=== PATIENT | female | born 1990 | race Caucasian/White ===

== ENCOUNTER 2019-01-03 20:49 | Emergency (ER) | payer OTHER ==
[~2019-01-03 20:49] MED LIST: IBUP-1114 PO; MAPA500T2 PO; VITAPRTA PO
[2019-01-03] MEDS ORDERED: ADDE10TA PO (21:03)
[2019-01-03] MEDS ORDERED: LITH150C PO (21:03)
[2019-01-03 21:31] LABS: HEMATOCRIT 45.6 % (36.0-47.0); HEMOGLOBIN 15.5 g/dl (12.0-15.5); MEAN CORPUSCULAR HEMOGLOBIN 33.5 pg (27.0-33.0); MEAN CORPUSCULAR VOLUME 98.7 fl (80.0-96.0); PLATELET COUNT, AUTOMATED 223 10^3/uL (150-450); RED BLOOD COUNT 4.62 10^6/uL (4.00-5.40); WHITE BLOOD COUNT 7.1 10^3/uL (4.0-10.0)
[2019-01-03 21:48] LABS: HCG, SERUM QUALITATIVE NEGATIVE (NEGATIVE)
[2019-01-03 21:57] LABS: ACETAMINOPHEN LEVEL < 2.0 UG/ML (10.0-30.0); ALBUMIN 4.5 GM/DL (3.2-5.2); ALT/SGPT 22 U/L (12-78); BILIRUBIN,DIRECT 0.1 MG/DL (0.0-0.2); BILIRUBIN,TOTAL 0.5 MG/DL (0.2-1.0); BLOOD UREA NITROGEN 10 MG/DL (7-18); CARBON DIOXIDE LEVEL 26 MEQ/L (21-32); CHLORIDE LEVEL 106 MEQ/L (98-107); CREATININE FOR GFR 0.94 MG/DL (0.55-1.30); ETHYL ALCOHOL (ETHANOL) 0.054 % (0.000-0.010); GLOMERULAR FILTRATION RATE > 60.0 (>60); GLUCOSE, FASTING 85 MG/DL (70-100); LITHIUM LEVEL < 0.20 MEQ/L (0.60-1.20); SALICYLATE LEVEL 4.1 MG/DL (5.0-30.0); SODIUM LEVEL 140 MEQ/L (136-145); TOTAL PROTEIN 8.2 GM/DL (6.4-8.2)
[2019-01-03 22:10] LABS: AMPHETAMINES LEVEL URINE POSITIVE (NEGATIVE); BARBITURATES URINE NEGATIVE (NEGATIVE); BENZODIAZEPINES URINE NEGATIVE (NEGATIVE); CANNABINOIDS URINE POSITIVE (NEGATIVE); COCAINE METABOLITE URINE NEGATIVE (NEGATIVE); METHADONE URINE NEGATIVE (NEGATIVE); OPIATES URINE NEGATIVE (NEGATIVE); PHENCYCLIDINE URINE NEGATIVE (NEGATIVE)
[2019-01-04] MEDS ORDERED: POTASSIUM CHLORIDE 10 MEQ SR TABLET PO ONE
[2019-01-04 00:05] VITALS: BP 119/68
== END 2019-01-04 00:06 | disposition home or self-care (01) ==
LOC: M ED 20:49
DX: F32.9 Major depressive disorder, single episode, unspecified (principal); Z79.899 Other long term (current) drug therapy
CPT/HCPCS: 36415; 80048; 80076; 80178; 80307; 84443; 84703; 85027; 99284; G0480

== ENCOUNTER 2019-03-14 10:54 | Emergency (ER) | payer MEDICAID, OTHER ==
[~2019-03-14] VITALS: Ht 175.3 cm; Wt 56.6 kg
[~2019-03-14 10:54] MED LIST changes: +ADDE10TA PO; +LITH150C PO
[2019-03-14 14:03] VITALS: BP 122/61
== END 2019-03-14 14:04 | disposition home or self-care (01) ==
LOC: M ED 10:54
DX: F43.20 Adjustment disorder, unspecified (principal); F17.210 Nicotine dependence, cigarettes, uncomplicated

== ENCOUNTER → 2019-05-11 | Outpatient (REF) | payer OTHER ==
[2019-05-11 11:29] LABS: BASO # 0.1 10^3/uL (0.0-0.2); BASO % 1.2 % (0.0-1.0); EOS # 0.3 10^3/uL (0.0-0.5); EOS % 5.2 % (0.0-3.0); HEMATOCRIT 46.1 % (36.0-47.0); HEMOGLOBIN 15.7 g/dl (12.0-15.5); LYMPH # 2.3 10^3/uL (1.5-5.0); LYMPH % 45.9 % (24.0-44.0); MEAN CORPUSCULAR HEMOGLOBIN 34.1 pg (27.0-33.0); MEAN CORPUSCULAR HGB CONC 34.1 g/dl (32.0-36.5); MONO # 0.6 10^3/uL (0.0-0.8); MONO % 11.4 % (0.0-5.0); NEUTROPHILS # 1.8 10^3/uL (1.5-8.5); NEUTROPHILS % 36.1 % (36.0-66.0); PLATELET COUNT, AUTOMATED 215 10^3/uL (150-450); RED BLOOD COUNT 4.61 10^6/uL (4.00-5.40)
== END ==
LOC: M SFHCCLAY 08:25
PROVIDERS: ATTEND Family Medicine
DX: R63.4 Abnormal weight loss (principal); R59.1 Generalized enlarged lymph nodes; R19.7 Diarrhea, unspecified

== ENCOUNTER → 2019-05-25 | Outpatient (CLI) | payer OTHER ==
[~2019-05-25] MED LIST changes: +ISOVUE-370 76% 100ML VIAL (Q9967) As Ordered ONE
--- NOTE | 2019-05-25 10:23 | REP ---
SOFT-TISSUE NECK CT STUDY WITH IV CONTRAST: HISTORY: Localized enlarged lymph nodes. Bilateral cervical lymphadenopathy. Assess for neoplasm. No comparison imaging. The patient reports swollen lymph nodes in the right side of the neck. CT CONTRAST DOSE: 75 mL of intravenous Isovue 370. CT FINDINGS: Lung apices are clear. No bony destructive lesion is appreciated. The visualized paranasal sinuses are clear. No intraorbital abnormality is seen. Visualized intracranial structures and vascular structures are unremarkable. The thyroid lobes are normal in size homogeneous in texture and symmetric. Submandibular and parotid glands are normal and symmetric. Epiglottis and aryepiglottic folds are normal. No glottic or subglottic airway lesion is seen. Tonsillar and peritonsillar soft tissues are normal. The nasopharynx and retropharyngeal soft tissues are unremarkable. There is no CT evidence of adenopathy in the cervical lymph nodes on either side. No mass or fluid collection is seen. IMPRESSION: No neck mass or adenopathy seen. Electronically Signed by Abdullahi Rea MD 05/25/2019 12:12 P
== END ==
LOC: M RAD 09:15
PROVIDERS: ATTEND Otolaryngology
DX: R59.0 Localized enlarged lymph nodes (principal)
CPT/HCPCS: 70491; Q9967

== ENCOUNTER → 2019-06-03 | Outpatient (CLI) | payer OTHER ==
[~2019-06-03] MED LIST changes: -ISOVUE-370 76% 100ML VIAL (Q9967) As Ordered ONE
--- NOTE | 2019-06-03 10:06 | REP ---
REASON FOR EXAM: Weight loss. There are no prior for comparison. By report, an outside right upper quadrant ultrasound was normal. That examination was obtained on 02/17/2019. Multiple ultrasonographic images of the gallbladder show no definite diffuse gallbladder wall thickening or pericholecystic edema, however, there is at least one echogenic focus adherent to the gallbladder wall casting ring down artifact. Multiple ultrasonographic images of the liver show a hepatic parenchymal echo pattern to be within normal limits. There is no intrahepatic or extrahepatic ductal dilatation. The common bile duct measures 3 mm. Imaged portion of the pancreatic region shows a possible 1.3 x 0.4 x 1.2 cm sized nodule difficult to evaluate by ultrasound in this location but possibly representing a peripancreatic lymph node. In addition, the pancreatic head region does appear to be somewhat full sized. FINDINGS: Multiple ultrasonographic images of the right kidney show the right kidney to measure 12.6 x 5.2 x 4.2 cm. The renal cortical echotexture is unremarkable. There are no masses. There is good corticomedullary differentiation. There is no hydronephrosis. There are no perinephric fluid collections. Multiple ultrasonographic images of the left kidney show the left kidney to measure 12.5 x 4.2 x 4.4 cm. The renal cortical echotexture is unremarkable. There are no masses. There is good corticomedullary differentiation. There is no hydronephrosis. There are no perinephric fluid collections. The spleen measures 9. 4 x 9.2 x 3.5 cm with a volumetric index calculation of 303. This is within normal limits. There are no splenic or perisplenic abnormalities. The imaged portion of the abdominal aorta is within normal limits. There is no free fluid in the abdomen. IMPRESSION: 1. Findings involving the gallbladder as described above. This has the appearance of early adenomyomatosis. If the patient is experiencing chronic upper quadrant pain, consider followup with hepatobiliary imaging with gallbladder ejection fraction calculation. 2. Peripancreatic nodule as described above. The nodule appears prominent. Contrast enhanced CT examination of the pancreas is recommended. This is seen in conjunction with ultrasonographic evidence of pancreatic and fullness. 3. Other findings as described above. Electronically Signed by Chilango Reese DO 06/03/2019 10:33 A
== END ==
LOC: M RAD 07:32
PROVIDERS: ATTEND Internal Medicine Gastroenterology
DX: R63.4 Abnormal weight loss (principal)

== ENCOUNTER → 2019-06-09 | Outpatient (CLI) | payer OTHER ==
--- NOTE | 2019-06-09 12:46 | REP ---
BILATERAL MAMMOGRAM WITH 3D TOMOSYNTHESIS AND BILATERAL BREAST ULTRASOUND: Patient reports history of milky clear nipple discharge bilaterally. Two palpable lumps are reported in the outer left breast. These are marked on the skin with triangular markers. MLO and CC views of both breast performed with 3D tomosynthesis. Additional spot compression views in the region of the palpable lumps is performed on the left in multiple projections. There are no prior studies for comparison. Tyrer-Cuzick lifetime risk of breast cancer 11.0%. This is a baseline mammogram. There is mildly dense fibroglandular tissue bilaterally. No mass, architectural distortion or clustered microcalcifications are seen bilaterally. Real-time sonographic evaluation of bilateral retroareolar regions demonstrate no cystic or solid nodule. In the outer left breast, in the region of the palpable lumps, at 4 -o'clock position, there is a hypoechoic nodule, which is fairly superficial. This measures 7 x 6 x 3 mm. It is wider than tall. It is not hyperemic with duplex Doppler evaluation. IMPRESSION: BIRADS 4: BI-RADS/ACR category 4 mammogram. Suspicious Abnormality - biopsy should be considered. ACR 4 suspicious. Moderately dense breast parenchyma bilaterally limits the sensitivity of the mammogram. No mammographic abnormality is seen bilaterally. Ultrasound of the retroareolar regions is performed due to bilateral nipple discharge. No cystic or solid nodule is seen in the retroareolar regions. However, in the outer left breast at 4 -o'clock position, there is an oval hypoechoic nodule measuring 7 x 6 x 3 mm. This could represent a fibroadenoma. However, I would recommend ultrasound-guided biopsy. This mammogram was interpreted with the aid of an FDA-approved computer-aided detection system. A. Negative x-ray reports should not delay biopsy if a dominant or clinically suspicious mass is present. B. Four to eight percent of cancers are not identified by x-ray. C. Adenosis and dense breasts may obscure an underlying neoplasm. The patient states she/he had a clinical breast exam in May 2019. The patient letter being requested is M4.
== END ==
LOC: M WHC 09:56
PROVIDERS: ATTEND Family Medicine
DX: R63.4 Abnormal weight loss (principal); N63.20 Unspecified lump in the left breast, unspecified quadrant
CPT/HCPCS: 76642; 77066; G0279

== ENCOUNTER → 2019-06-10 | Outpatient (CLI) | payer OTHER ==
[~2019-06-10] MED LIST changes: +PROHANCE 279.3MG/ML 5ML VIAL As Ordered ONE
--- NOTE | 2019-06-10 13:31 | REP ---
MRI PANCREAS WITH AND WITHOUT CONTRAST: HISTORY: Chronic pancreatitis, weight loss, abdominal pain, nausea. COMPARISON: Ultrasound 06/03/2019, CT 06/29/2018. Pancreas is normal in signal with no evidence of pancreatitis. There is no pancreatic mass. There is no pancreatic duct dilatation. There is no biliary dilatation. In the visualized portions of the liver, there is a nonenhancing cyst seen in the right lobe measuring 9 mm in diameter. Otherwise, the visualized liver demonstrates no mass. Spleen is normal in size with no intrinsic abnormality. The adrenal glands are normal. Kidneys are normal. Normal-sized, nonenlarged lymph nodes are seen in the periaortic region. There appear to be a couple of subcentimeter lymph nodes in the peripancreatic region. One of these likely corresponds to the nodule on the ultrasound. No ascites is seen. Incidental note is made of a 3 cm cyst in the right ovary. IMPRESSION: No pancreatic mass or pancreatic duct dilatation. Nonenlarged peripancreatic and periaortic lymph nodes. One of the peripancreatic nonenlarged lymph nodes likely corresponds to the nodule seen on the recent ultrasound of 06/03/2019. Subcentimeter cyst in the right lobe of the liver. Incidental note is made of a 3 cm cyst in the right ovary. Electronically Signed by Wesley Guerrero MD 06/10/2019 03:07 P
== END ==
LOC: M RAD 08:37
PROVIDERS: ATTEND Internal Medicine Gastroenterology
DX: K86.1 Other chronic pancreatitis (principal); D48.7 Neoplasm of uncertain behavior of other specified sites
CPT/HCPCS: 74183; A9576

== ENCOUNTER → 2019-06-16 | Outpatient (CLI) | payer OTHER ==
[~2019-06-16] MED LIST changes: -PROHANCE 279.3MG/ML 5ML VIAL As Ordered ONE
== END ==
LOC: M PLALAB 10:21
PROVIDERS: ATTEND Surgery
DX: Z80.9 Family history of malignant neoplasm, unspecified (principal)

== ENCOUNTER → 2019-06-16 | Outpatient (REF) | payer OTHER ==
[2019-06-16 16:15] LABS: APPEARANCE, URINE HAZY (CLEAR); BACTERIA, URINE AUTO 1+ (NEGATIVE); BILIRUBIN, URINE AUTO NEGATIVE (NEGATIVE); BLOOD, URINE BLOOD NEGATIVE (NEGATIVE); COLOR, URINE YELLOW (YELLOW); GLUCOSE, URINE (UA) AUTO NEGATIVE (NEGATIVE); KETONE, URINE AUTO NEGATIVE (NEGATIVE); LEUKOCYTE ESTERASE, URINE AUTO NEGATIVE (NEGATIVE); NITRITE, URINE AUTO NEGATIVE (NEGATIVE); PROTEIN, URINE AUTO NEGATIVE (NEGATIVE); RBC, URINE AUTO 1 /HPF (0-3); SPECIFIC GRAVITY URINE AUTO 1.015 (1.002-1.035); SQUAMOUS EPITHELIAL CELL UR AU 5 /HPF (0-6); UROBILINOGEN, URINE AUTO 0.2 mg/dL (0.0-2.0); WBC, URINE AUTO 1 /HPF (0-3)
[2019-06-18 14:12] LABS: CARDIOLIPIN IGA ANTIBODY <9 APL U/mL (0-11); CARDIOLIPIN IGG ANTIBODY <9 GPL U/mL (0-14); CARDIOLIPIN IGM ANTIBODY 9 MPL U/mL (0-12)
[2019-06-21 10:31] LABS: DRVV SCREEN 36.3 SEC
[2019-06-21 10:32] LABS: PTT LUPUS TYPE ANTICOAG SCREEN 0.9 (0-1.2)
== END ==
LOC: M SFHCCLAY 11:57
PROVIDERS: ATTEND Family Medicine
DX: M25.50 Pain in unspecified joint (principal)

== ENCOUNTER → 2019-06-20 | Outpatient (CLI) | payer OTHER ==
--- NOTE | 2019-06-21 07:18 | REP ---
Clinical: Right axillary pain. Technique: Real time crews scale and color evaluation using linear high frequency transducer. Findings: Directed ultrasound examination of the right axillary region demonstrates multiple normal appearing lymph nodes measuring up to 11 x 17 x 6 mm and 16 x 11 x 5 mm. No fluid collection, abnormal appearing lymph nodes or mass lesion appreciated. Impression: Normal appearing right axillary lymph nodes.
== END ==
LOC: M WHC 11:09
PROVIDERS: ATTEND Surgery
DX: M79.621 Pain in right upper arm (principal)

== ENCOUNTER → 2019-06-23 | Outpatient (REF) | payer OTHER ==
[~2019-06-23] MED LIST changes: +AMIT25TA PO
[2019-06-23 17:34] LABS: BASO # 0.1 10^3/uL (0.0-0.2); EOS # 0.2 10^3/uL (0.0-0.5); EOS % 4.7 % (0.0-3.0); HEMATOCRIT 44.7 % (36.0-47.0); HEMOGLOBIN 15.5 g/dl (12.0-15.5); LYMPH # 2.2 10^3/uL (1.5-5.0); LYMPH % 44.5 % (24.0-44.0); MEAN CORPUSCULAR HEMOGLOBIN 34.5 pg (27.0-33.0); MEAN CORPUSCULAR HGB CONC 34.7 g/dl (32.0-36.5); MEAN CORPUSCULAR VOLUME 99.6 fl (80.0-96.0); MONO # 0.6 10^3/uL (0.0-0.8); MONO % 11.3 % (0.0-5.0); NEUTROPHILS # 1.8 10^3/uL (1.5-8.5); NEUTROPHILS % 37.9 % (36.0-66.0); PLATELET COUNT, AUTOMATED 230 10^3/uL (150-450); RED BLOOD COUNT 4.49 10^6/uL (4.00-5.40); WHITE BLOOD COUNT 4.9 10^3/uL (4.0-10.0)
[2019-06-25 08:10] LABS: ERYTHROPOIETIN 6.5 mIU/mL (2.6-18.5)
[2019-06-26 06:18] LABS: JAK2 MUTATIONS FOR PATH SENDOU See Pathology Report
== END ==
LOC: M LABDRAWC 16:01
PROVIDERS: ATTEND Internal Medicine Medical Oncology
DX: D72.821 Monocytosis (symptomatic) (principal)

== ENCOUNTER → 2019-06-27 | Outpatient (REF) | payer OTHER | LOC: M SFHCCLAY 08:42 | PROVIDERS: ATTEND Family Medicine | DX: Z11.4 Encounter for screening for human immunodeficiency virus [HIV] (principal) ==

== ENCOUNTER → 2019-07-04 | Outpatient (CLI) | payer OTHER | LOC: M LABSMTC 10:24 | PROVIDERS: ATTEND Anesthesiology | DX: Z01.818 Encounter for other preprocedural examination (principal); Z11.59 Encounter for screening for other viral diseases | CPT/HCPCS: C8903; U0003 ==

== ENCOUNTER → 2019-07-06 | Outpatient (REF) | payer OTHER ==
[2019-07-06 20:47] LABS: CHLAMYDIA DNA AMPLIFICATION NEGATIVE (NEGATIVE); GC DNA AMPLIFICATION NEGATIVE (NEGATIVE)
== END ==
LOC: M SFHCWAGY 17:28
PROVIDERS: ATTEND Obstetrics & Gynecology
DX: Z12.4 Encounter for screening for malignant neoplasm of cervix (principal)

== ENCOUNTER → 2019-07-20 | Outpatient (CLI) | payer OTHER ==
--- NOTE | 2019-07-20 15:12 | REP ---
REASON: Metrorrhagia. Only transvesical imaging was obtained. The urinary bladder was decompressed. No measurement could be obtained. Uterus measures 8.8 x 5.1 x 5.9 cm. The endometrial echo complex measures 8 mm. The right ovary measures 4 x 2.4 x 2.4 cm. Within the right ovary there are two anechoic structures, one measures 3.1 x 2.3 x 2.4 cm and the other 1.9 x 1.1 x 1.3 cm. Left ovary measures 1.8 x 2 x 1.9 cm. IMPRESSION: Right ovarian cysts.
== END ==
LOC: M WHC 08:15
PROVIDERS: ATTEND Obstetrics & Gynecology
DX: N83.202 Unspecified ovarian cyst, left side (principal)

== ENCOUNTER → 2019-08-16 | Outpatient (CLI) | payer OTHER ==
[~2019-08-16] MED LIST changes: +COLA100C5 PO; +IBUP1TAB7 PO; +TYLETAB14 PO
[2019-08-16 10:58] VITALS: BP 110/84
--- NOTE | 2019-08-16 10:59 | REP ---
DIGITAL DIAGNOSTIC UNILATERAL LEFT BREAST MAMMOGRAPHY: Two views. HISTORY: Marker clip placement mammogram views. The patient status post ultrasound-guided needle biopsy for hypoechoic area on sonography images dated June 09, 2019. FINDINGS: Mediolateral and craniocaudal views of the left breast were obtained. Marker clip is in good position in the left lateral breast corresponding to the area of the previous markings denoting the site of palpable abnormalities. No mammographic abnormality is observed other than some postoperative changes. There is no evidence of hematoma. IMPRESSION: Marker clip is seen in the lateral left breast.
--- NOTE | 2019-08-16 11:19 | REP ---
ULTRASOUND-GUIDED LEFT BREAST BIOPSY The procedure was performed under the general supervision of Dr. Rea. The patient has a history of a 7 x 6 x 3 mm hypoechoic nodule in the 4 o'clock position of the left breast seen on a previous ultrasound dated 06/09/2019. The risks and benefits of the procedure were explained to the patient and informed consent was obtained. The left breast nodule was localized using ultrasound guidance. The skin was prepped and draped in a sterile fashion. 1% lidocaine was used as a local anesthetic. Using ultrasound guidance a 14-gauge coaxial needle biopsy system was inserted and advanced into the nodule. Six core biopsy samples were obtained. A marker clip ( Hydromark shape 4) was placed at the biopsy site. The patient tolerated the procedure well and there were no immediate complications. Electronically Signed by RJ Fox 08/16/2019 10:23 A Electronically Signed by Abdullahi Rea MD 08/16/2019 11:11 A
== END ==
LOC: M WHCPRO 09:37
PROVIDERS: ATTEND Surgery
DX: N63.24 Unspecified lump in the left breast, lower inner quadrant (principal); N60.12 Diffuse cystic mastopathy of left breast

== ENCOUNTER → 2019-09-05 | Outpatient (REF) | payer OTHER ==
[2019-10-03 14:43] LABS: D002-IGE D FARINAE MITE 0.21 kU/L (Class 0/I); E001-IGE CAT EPITHELIUM/DANDER <0.10 kU/L (Class 0); E005-IGE DOG DANDER/HAIR/EPITH <0.10 kU/L (Class 0); G002-IGE BERMUDA GRASS <0.10 kU/L (Class 0); G003-IGE ORCHARD GRASS <0.10 kU/L (Class 0); G006-IGE TIMOTHY GRASS <0.10 kU/L (Class 0); IGE HICKORY, WHITE <0.10 kU/L (Class 0); M003-IGE ASPERGILLUS fumigatus <0.10 kU/L (Class 0); M003-IGE D pteronyssinus 0.24 kU/L (Class 0/I); M006-IGE ALTERNARIA alternata <0.10 kU/L (Class 0); M007-IGE BOTRYTIS cinerea <0.10 kU/L (Class 0); M009-IGE FUSARIUM proliferatum <0.10 kU/L (Class 0); T001-IGE MAPLE/BOX ELDER <0.10 kU/L (Class 0); T003-IGE COMMON SILVER BIRCH <0.10 kU/L (Class 0); T005-IGE BEECH (AMERICAN) <0.10 kU/L (Class 0); T007-IGE OAK, WHITE <0.10 kU/L (Class 0); T008-IGE ELM, AMERICAN WHITE <0.10 kU/L (Class 0); T014-IGE COTTONWOOD <0.10 kU/L (Class 0); T015-IGE ASH, WHITE <0.10 kU/L (Class 0); T016-IGE PINE, WHITE <0.10 kU/L (Class 0); W001-IGE RAGWEED, SHORT <0.10 kU/L (Class 0); W003-IGE RAGWEED, GIANT <0.10 kU/L (Class 0); W006-IGE MUGWORT <0.10 kU/L (Class 0); W009-IGE PLANTAIN,ENGLISH <0.10 kU/L (Class 0); W010-IGE LAMB'S QUARTER <0.10 kU/L (Class 0); W012-IGE GOLDENROD <0.10 kU/L (Class 0)
== END ==
LOC: M LABDRAWC 15:46
PROVIDERS: ATTEND Allergy & Immunology Allergy
DX: J30.9 Allergic rhinitis, unspecified (principal)

== ENCOUNTER → 2019-09-08 | Outpatient (CLI) | payer OTHER ==
[~2019-09-08] MED LIST changes: +PROHANCE 279.3MG/ML 5ML VIAL As Ordered ONE
--- NOTE | 2019-09-08 11:00 | REP ---
Bilateral breast MRI study without and with IV gadolinium: HISTORY: Bilateral nipple discharge. Left breast mass. The patient reports swelling in the lymph node on the left in the past week. Comparison mammography August 16, 2019 and sonography August 16, 2019 taken in conjunction with a needle biopsy procedure. Pathologic report from this needle biopsy procedure showed metaplasia/hyperplasia and focal ductal epithelial hyperplasia. Apocrine comparison is also made with mammography and breast sonography June 09, 2019. TECHNIQUE: Three Marquita MRI imaging was performed with a dedicated breast coil. Axial, coronal, and sagittal T1 and T2-weighted scans were obtained with and without fat saturation in the usual fashion. The study includes dynamically acquired post gadolinium enhanced imaging subtraction imaging. Maximal intensity projection and multiplanar re-formation imaging is included as well. The study was interpreted with the aid of [employer], an FDA approved computer-aided detection (CAD) software program, on a dedicated breast MRI work station. The gadolinium enhancement dose is 10 mL of intravenous ProHance. FINDINGS: T2-weighted scans demonstrate mild ductal dilation in the retroareolar region on the right and moderate dilated ducts on the left. There are two tiny incidental liver cysts. There is no evidence of axillary lymphadenopathy. There is a visible normal-sized axillary lymph node on the left measuring 8 x 5 mm. This is not enlarged or abnormal by ultrasound criteria. A needle biopsy marker clip with surrounding fluid signal (HydroMARK) type clip is seen in the biopsy site in the left lateral breast superficially. There is an extreme pattern of fibroglandular tissue bilaterally corresponding with the dense tissue seen mammographically. There is a moderate pattern of background parenchymal enhancement. No suspicious focus of enhancement and washout is seen in either breast on dynamic study to suggest malignancy. No suspicious morphologic abnormality is observed. IMPRESSION: BIRADS category 2 benign findings. Clinical followup is advised. Unreviewed
== END ==
LOC: M RAD 08:27
PROVIDERS: ATTEND Surgery
DX: N63.20 Unspecified lump in the left breast, unspecified quadrant (principal); N64.52 Nipple discharge
CPT/HCPCS: A9576; C8908

== ENCOUNTER 2019-10-06 09:21 | Day surgery (SDC) | payer OTHER ==
[~2019-10-06] VITALS: Ht 175.3 cm; Wt 52.2 kg
[~2019-10-06 09:21] MED LIST changes: -COLA100C5 PO; -IBUP1TAB7 PO; -PROHANCE 279.3MG/ML 5ML VIAL As Ordered ONE; -TYLETAB14 PO
[2019-10-06] MEDS ORDERED: propofoL 500 MG/50 ML VIAL As Ordered ONE (10:32)
[2019-10-06] MEDS ORDERED: LIDOCAINE 2% 100MG/5ML SDV (FOR ANES.) As Ordered ONE (10:32)
[2019-10-06] MEDS ORDERED: fentaNYL 100 MCG/2 ML INJECTION (J3010) As Ordered ONE (10:32)
[2019-10-06] MEDS ORDERED: NS 1,000 ML IV ONE (11:00)
[2019-10-06 11:20] VITALS: BP 110/70
--- NOTE | 2019-10-26 11:35 | ROOR ---
Patient Name: Quynh Schaffer Procedure Date: 10/06/2019 10:12 AM Date of : 1990 Age: 29 Room: [facility] Gender: Female Note Status: Molder Labels Override Procedure: Upper GI endoscopy Indications: Abnormal CT of the GI tract, Weight loss Providers: Amrik Myrick MD Referring MD: Rosalinda OLEARY DO Requesting Provider: Medicines: Monitored Anesthesia Care Complications: No immediate complications. Procedure: Pre-Anesthesia Assessment: - Prior to the procedure, a History and Physical was performed, and patient medications and allergies were reviewed. The patient is competent. The risks and benefits of the procedure and the sedation options and risks were discussed with the patient. All questions were answered and informed consent was obtained. Patient identification and proposed procedure were verified by the physician, the nurse and the anesthesiologist in the procedure room. Mental Status Examination: alert and oriented. Airway Examination: normal oropharyngeal airway and neck mobility. Respiratory Examination: clear to auscultation. CV Examination: normal. Prophylactic Antibiotics: The patient does not require prophylactic antibiotics. Prior Anticoagulants: The patient has taken no previous anticoagulant or antiplatelet agents. ASA Grade Assessment: II - A patient with mild systemic disease. After reviewing the risks and benefits, the patient was deemed in satisfactory condition to undergo the procedure. The anesthesia plan was to use monitored anesthesia care (MAC). Immediately prior to administration of medications, the patient was re-assessed for adequacy to receive sedatives. The heart rate, respiratory rate, oxygen saturations, blood pressure, adequacy of pulmonary ventilation, and response to care were monitored throughout the procedure. The physical status of the patient was re-assessed after the procedure. The Endoscope was introduced through the mouth, and advanced to the second part of duodenum. The upper GI endoscopy was accomplished without difficulty. The patient tolerated the procedure well. Findings: The examined esophagus was normal. The Z-line was regular and was found 40 cm from the incisors. Scattered mild inflammation characterized by erythema and granularity was found in the gastric antrum. Biopsies were taken with a cold forceps for Helicobacter pylori testing. Verification of patient identification for the specimen was done by the physician and nurse using the patient's name, date and medical record number. Estimated blood loss was minimal. The duodenal bulb, second portion of the duodenum and area of the papilla were normal. Biopsies for histology were taken with a cold forceps for evaluation of celiac disease. Impression: - Normal esophagus. - Z-line regular, 40 cm from the incisors. - Gastritis. Biopsied. - Normal duodenal bulb, second portion of the duodenum and area of the papilla. Biopsied. Recommendation: - Patient has a contact number available for emergencies. The signs and symptoms of potential delayed complications were discussed with the patient. Return to normal activities tomorrow. Written discharge instructions were provided to the patient. - Resume previous diet. - Continue present medications. - Await pathology results. - Return to GI clinic in [facility] (address [address], [address], [place], [facility] [place]) in 4 -- 6 weeks. Please call GI clinic @ [phone] for apppointment date and time. - Return to primary care physician. Amrik Myrick MD 10/06/2019 10:33:58 AM Number of Addenda: 0 Note Initiated On: 10/06/2019 10:12 AM Estimated Blood Loss: Estimated blood loss was minimal.
--- NOTE | 2019-10-26 11:35 | ROOR ---
Patient Name: Quynh Schaffer Procedure Date: 10/06/2019 10:13 AM Date of : 1990 Age: 29 Room: [facility] Gender: Female Note Status: Finalized Procedure: Colonoscopy Indications: Abnormal CT of the GI tract, Weight loss Providers: Amrik Myrick MD Referring MD: Rosalinda OLEARY DO Requesting Provider: Medicines: Monitored Anesthesia Care Complications: No immediate complications. Procedure: Pre-Anesthesia Assessment: - Prior to the procedure, a History and Physical was performed, and patient medications and allergies were reviewed. The patient is competent. The risks and benefits of the procedure and the sedation options and risks were discussed with the patient. All questions were answered and informed consent was obtained. Patient identification and proposed procedure were verified by the physician, the nurse and the anesthesiologist in the procedure room. Mental Status Examination: alert and oriented. Airway Examination: normal oropharyngeal airway and neck mobility. Respiratory Examination: clear to auscultation. CV Examination: normal. Prophylactic Antibiotics: The patient does not require prophylactic antibiotics. Prior Anticoagulants: The patient has taken no previous anticoagulant or antiplatelet agents. ASA Grade Assessment: II - A patient with mild systemic disease. After reviewing the risks and benefits, the patient was deemed in satisfactory condition to undergo the procedure. The anesthesia plan was to use monitored anesthesia care (MAC). Immediately prior to administration of medications, the patient was re-assessed for adequacy to receive sedatives. The heart rate, respiratory rate, oxygen saturations, blood pressure, adequacy of pulmonary ventilation, and response to care were monitored throughout the procedure. The physical status of the patient was re-assessed after the procedure. The Colonoscope was introduced through the anus and advanced to the terminal ileum, with identification of the appendiceal orifice and IC valve. The colonoscopy was performed without difficulty. The patient tolerated the procedure well. The quality of the bowel preparation was good. The terminal ileum, ileocecal valve, appendiceal orifice, and rectum were photographed. Scope insertion time was 3 minutes. Scope withdrawal time was 9 minutes. The total duration of the procedure was 12 minutes. Findings: The perianal and digital rectal examinations were normal. The terminal ileum appeared normal. Non-bleeding external and internal hemorrhoids were found during retroflexion. The hemorrhoids were medium-sized. Normal mucosa was found in the entire colon. Biopsies for histology were taken with a cold forceps from the right colon, left colon, transverse colon and rectosigmoid colon for evaluation of microscopic colitis. Impression: - The examined portion of the ileum was normal. - Non-bleeding external and internal hemorrhoids. - Normal mucosa in the entire examined colon. Biopsied. Recommendation: - Patient has a contact number available for emergencies. The signs and symptoms of potential delayed complications were discussed with the patient. Return to normal activities tomorrow. Written discharge instructions were provided to the patient. - Resume previous diet. - Continue present medications. - Await pathology results. - Repeat colonoscopy at age 49 for screening purposes. - Return to GI clinic in [facility] (address [address], [address], [place] [address]) in 4 -- 6 weeks. Please call GI clinic @ [phone] for apppointment date and time. - Return to primary care physician. Amrik Myrick MD 10/06/2019 10:55:39 AM Number of Addenda: 0 Note Initiated On: 10/06/2019 10:13 AM Estimated Blood Loss: Estimated blood loss was minimal.
== END 2019-10-06 11:29 | disposition home or self-care (01) ==
LOC: M OPP 09:21
PROVIDERS: ATTEND Internal Medicine Gastroenterology
DX: K64.8 Other hemorrhoids (principal); K29.70 Gastritis, unspecified, without bleeding; R63.4 Abnormal weight loss; R93.3 Abnormal findings on diagnostic imaging of other parts of digestive tract; K63.5 Polyp of colon; F17.210 Nicotine dependence, cigarettes, uncomplicated; Z79.899 Other long term (current) drug therapy; Z91.040 Latex allergy status
CPT/HCPCS: 43239; 45380; 88305; J3010

== ENCOUNTER → 2019-10-09 | Outpatient (CLI) | payer OTHER ==
[~2019-10-09] MED LIST changes: +COLA100C5 PO; +IBUP1TAB7 PO; +TYLETAB14 PO
== END ==
LOC: M LABSMTC 10:50
PROVIDERS: ATTEND Anesthesiology
DX: Z11.59 Encounter for screening for other viral diseases (principal)
CPT/HCPCS: C9803; U0003

== ENCOUNTER 2019-10-14 06:08 | Day surgery (SDC) | payer OTHER ==
[~2019-10-14] VITALS: Ht 175.3 cm; Wt 52.2 kg
[~2019-10-14 06:08] MED LIST changes: -COLA100C5 PO; -IBUP1TAB7 PO; -TYLETAB14 PO
[2019-10-14] MEDS ORDERED: ceFAZolin 2 GM/D5W 50 ML IV BAG (J0690 PER 500MG) As Ordered ONE (06:44)
[2019-10-14] MEDS ORDERED: LR 1,000 ML IV ONE (06:45)
[2019-10-14] MEDS ORDERED: ceFAZolin SOD 2 GM in IV 1 EA IV ONE (06:45)
[2019-10-14] MEDS ORDERED: BUPIVACAINE HCL 0.25% 30ML VIAL As Ordered ONE (07:11)
[2019-10-14] MEDS ORDERED: METHYLENE BLUE 0.5% (5MG/ML) 10 ML AMP (PROVAYBLUE) As Ordered ONE (07:12)
[2019-10-14 07:13] LABS: HEMATOCRIT 42.9 % (36.0-47.0); HEMOGLOBIN 14.8 g/dl (12.0-15.5); MEAN CORPUSCULAR HEMOGLOBIN 33.9 pg (27.0-33.0); MEAN CORPUSCULAR HGB CONC 34.5 g/dl (32.0-36.5); MEAN CORPUSCULAR VOLUME 98.4 fl (80.0-96.0); PLATELET COUNT, AUTOMATED 208 10^3/uL (150-450); RED BLOOD COUNT 4.36 10^6/uL (4.00-5.40); WHITE BLOOD COUNT 4.6 10^3/uL (4.0-10.0)
[2019-10-14] MEDS ORDERED: SCOPOLAMINE 1MG TRANSDERMAL PATCH As Ordered ONE (07:14)
[2019-10-14] MEDS ORDERED: fentaNYL 100 MCG/2 ML INJECTION (J3010) As Ordered ONE (07:19)
[2019-10-14] MEDS ORDERED: ROCURONIUM BROMIDE 50 MG/5 ML VIAL As Ordered ONE ×2 (07:19→09:10)
[2019-10-14] MEDS ORDERED: HYDROmorphone HCL 2 MG/ML 1ML VIAL (J1170) As Ordered ONE (07:19)
[2019-10-14] MEDS ORDERED: LIDOCAINE 2% 100MG/5ML SDV (FOR ANES.) As Ordered ONE (07:19)
[2019-10-14] MEDS ORDERED: ONDANSETRON 4MG/2ML VIAL As Ordered ONE (07:19)
[2019-10-14] MEDS ORDERED: SUGAMMADEX SODIUM 500 MG/5 ML VIAL (BRIDION) As Ordered ONE (07:19)
[2019-10-14] MEDS ORDERED: ACETAMINOPHEN 1000MG 100ML IV BTL (OFIRMEV) (J0131 PER 10MG) As Ordered ONE (07:19)
[2019-10-14] MEDS ORDERED: dexameTHASONE 4 MG/ML 1ML VIAL (J1100 PER 1MG) As Ordered ONE (07:19)
[2019-10-14] MEDS ORDERED: MIDAZOLAM INJ 2MG/2ML VIAL (J2250 PER 1MG) As Ordered ONE (07:19)
[2019-10-14] MEDS ORDERED: propofoL 200 MG/20 ML VIAL As Ordered ONE (07:19)
[2019-10-14] MEDS ORDERED: SCOPOLAMINE 1MG TRANSDERMAL PATCH TOP ONE (07:45)
[2019-10-14 08:01] LABS: HCG, SERUM QUALITATIVE NEGATIVE (NEGATIVE)
[2019-10-14] MEDS ORDERED: KETOROLAC 60MG 2ML VIAL As Ordered ONE (09:00)
[2019-10-14] MEDS ORDERED: IBUP1TAB7 PO (10:33)
[2019-10-14] MEDS ORDERED: TYLETAB14 PO (10:35)
[2019-10-14] MEDS ORDERED: COLA100C5 PO (10:36)
[2019-10-14] MEDS ORDERED: ONDANSETRON 4MG/2ML VIAL IV PRN ×2 (10:39→10:45)
[2019-10-14] MEDS ORDERED: diphenhydrAMINE 50MG/ML VIAL (J1200) IV PRN (10:45)
[2019-10-14] MEDS ORDERED: PROMETHAZINE INJ 25 MG/ML VIAL (J2550) IV PRN (10:45)
[2019-10-14] MEDS ORDERED: LR 1,000 ML IV SCH (10:45)
[2019-10-14] MEDS ORDERED: ACETAMINOPH W/CODEINE #3 TAB UD PO PRN (10:45)
[2019-10-14] MEDS ORDERED: fentaNYL 100 MCG/2 ML INJECTION (J3010) IV PRN (10:45)
[2019-10-14] MEDS ORDERED: MORPHINE 4 MG/ML 1ML VIAL/SYRINGE (J2270) IV PRN (10:45)
[2019-10-14] MEDS ORDERED: METOCLOPRAMIDE INJ 10MG/2ML VIAL (J2765 PER 1) IV PRN (10:45)
[2019-10-14] MEDS ORDERED: PERCOCET 5MG/325MG TAB PO PRN (10:45)
[2019-10-14] MEDS ORDERED: KETOROLAC 30 MG/ML 1ML VIAL IV PRN ×2 (10:45)
[2019-10-14 11:05] VITALS: BP 119/78
[2019-10-14 11:35] VITALS: BP 131/75
[2019-10-14 12:03] VITALS: BP 123/71
== END 2019-10-14 13:10 | disposition home or self-care (01) ==
LOC: M SDC 06:08 → M PED 10:59 → M SDC 13:10
PROVIDERS: ATTEND Obstetrics & Gynecology
DX: N93.9 Abnormal uterine and vaginal bleeding, unspecified (principal); R10.2 Pelvic and perineal pain; N80.0 Endometriosis of uterus; N88.8 Other specified noninflammatory disorders of cervix uteri; Z91.040 Latex allergy status; F32.9 Major depressive disorder, single episode, unspecified; F41.9 Anxiety disorder, unspecified; Z79.899 Other long term (current) drug therapy
CPT/HCPCS: 36415; 58571; 84703; 85027; 86850; 86900; 86901; 88307; J0131; J0690; J1100; J1170; J1885; J2250; J2405; J3010; Q9968

== ENCOUNTER → 2019-12-06 | Outpatient (REF) | payer OTHER ==
[~2019-12-06] MED LIST changes: +COLA100C5 PO; +IBUP1TAB7 PO; +TYLETAB14 PO
[2019-12-06 17:55] LABS: C REACTIVE PROTEIN QUANTITATIV < 0.30 MG/DL (0.00-0.30); CPK CREATINE PHOSPHOKINASE 62 U/L (26-192); FREE T4 0.92 NG/DL (0.76-1.46); TOTAL PROTEIN 7.8 GM/DL (6.4-8.2)
[2019-12-06 17:58] LABS: THYROID PEROXIDASE ANTIBODY 29.4 U/ML (<60.0); TOTAL T3 104.4 NG/DL (60.0-181.0)
[2019-12-06 18:09] LABS: HEPATITIS B SURFACE ANTIGEN NEGATIVE (NEGATIVE)
[2019-12-06 18:37] LABS: HEPATITIS C VIRUS ABY INDEX 0.1 INDEX (<0.8)
[2019-12-08 09:31] LABS: ALBUMIN 4.75 GM/DL (3.29-5.55); ALBUMIN % 60.9 % (55.8-66.1); ALPHA-1-GLOBULINS 0.31 GM/DL (0.17-0.41); ALPHA-2-GLOBULINS 0.62 GM/DL (0.42-0.99); BETA-1-GLOBULINS 0.46 GM/DL (0.28-0.60); BETA-1-GLOBULINS % 5.9 % (4.7-7.2); BETA-2-GLOBULINS 0.39 GM/DL (0.19-0.55); GAMMA GLOBULIN % 16.2 % (11.1-18.8); GAMMA GLOBULINS 1.26 GM/DL (0.65-1.58)
[2019-12-12 19:06] LABS: ANCA-ATYPICAL <1:20 titer (Neg:<1:20); ANTI CENTROMERE ANTIBODY <0.2 AI (0.0-0.9); ANTI SCLERODERMA ANTIBODIES <0.2 AI (0.0-0.9); CYCLIC CITRULLINATED PEPTIDE 5 units (0-19); CYTOPLASMIC NEUTROP AB ANCA-C <1:20 titer (Neg:<1:20); HEPATITIS B CORE ANTIBODY IGG Negative (Negative); HLA-B27 Negative (.); PERINUCLEAR AB ANCA-P <1:20 titer (Neg:<1:20)
== END ==
LOC: M SFHCRHEU 12:06
PROVIDERS: ATTEND Internal Medicine
DX: M25.50 Pain in unspecified joint (principal); R76.8 Other specified abnormal immunological findings in serum; R63.4 Abnormal weight loss

== ENCOUNTER → 2019-12-21 | Outpatient (CLI) | payer OTHER ==
--- NOTE | 2019-12-21 14:46 | REP ---
INDICATION: POLYATHRALGIA. COMPARISON: None. TECHNIQUE: Four views. FINDINGS: Sacroiliac joints show no evidence of ankylosis or erosive change. No degenerative spurring is seen. The bony sacrum appears intact. IMPRESSION: Negative bilateral SI joint series. <Electronically signed by Oliverio Rea > 12/21/19 [id number]
--- NOTE | 2019-12-23 13:21 | ECHO ---
DATE OF PROCEDURE: 12/21/2019 Age: 29 Gender: Female REFERRING PROVIDER: Mariya Lisa MD PATIENT LOCATION: Outpatient. REASON FOR STUDY: Hypermobility syndrome. 2D MEASUREMENTS: IVS 0.8 cm LV 4.3 cm LVPW 0.7 cm LA 2.4 cm Aorta 2.8 cm IVC 1.9 cm DOPPLER MEASUREMENT Mitral E 1.0 Mitral A 0.5 with a ratio of 2.1 2D COMMENTS: 1. Normal left ventricular size, wall thickness, and normal global left ventricular systolic function. The estimated left ventricular systolic ejection fraction is 60% to 65%. 2. Normal left atrium. Normal right atrium and right ventricle. 3. The atrial septum appeared to be normal without evidence of defect or shunt. 4. Normal aortic root. 5. No pericardial effusion seen. 6. The aortic valve, mitral valve, and tricuspid valve appeared to be normal. The pulmonic valve and proximal pulmonary artery branches were not well visualized. 7. The inferior vena cava was normal in size, central venous pressure is most likely normal. Doppler with no significant valvular abnormalities detected. Assessment of the left ventricular diastolic function appeared to be normal. IMPRESSION: 1. Normal global left ventricular systolic and diastolic function. 2. No significant valvular abnormalities detected. 3. The aorta was normal in size. [facility]
== END ==
LOC: M CARPUL 10:15
PROVIDERS: ATTEND Internal Medicine
DX: M35.7 Hypermobility syndrome (principal)

== ENCOUNTER → 2020-04-13 | Outpatient (REF) | payer MEDICAID ==
[~2020-04-13] MED LIST changes: -AMIT25TA PO; +AMIT25TA17 PO
== END ==
LOC: M SFHCCLAY 11:08
PROVIDERS: ATTEND Family Medicine
DX: K13.0 Diseases of lips (principal)

== ENCOUNTER → 2020-04-17 | Outpatient (REF) | payer MEDICAID | LOC: M SFHCCLAY 17:20 | PROVIDERS: ATTEND Family Medicine | DX: L98.9 Disorder of the skin and subcutaneous tissue, unspecified (principal) ==

== ENCOUNTER → 2020-06-11 | Outpatient (CLI) | payer OTHER ==
--- NOTE | 2020-06-11 09:53 | REPMRS ---
Patient History The patient states she had a clinical breast exam in July 2019. Family history of unknown cancer in father, unknown cancer in brother, breast cancer in paternal aunt, breast cancer in paternal aunt. Benign US guided breast biopsy. of the left breast, August 16, 2019. No breast complaints today Patient signed the MRS sheet 1st covid vaccine 04/19/20-left arm-Pfizer 2nd covid vaccine 05/10/20-right arm Patient states she has gained 25lbs since her last mammo U/S guided breast bx 08/16/2019 Digital Woman Screen Mammo: June 11, 2020 - Exam #: [id number] Bilateral CC and MLO view(s) were taken. Technologist: Aysha Hunter, Technologist Prior study comparison: August 16, 2019, left breast diagnostic unilateral mammo performed at [facility]. June 09, 2019, diagnostic bilateral mammo performed at [facility]. FINDINGS: The breast tissue is extremely dense which could obscure a lesion on mammography. Screening. Digital screening (2D) mammography was performed bilaterally in the CC and MLO projections. Additionally, breast tomosynthesis (3D mammography) was performed bilaterally in the CC and MLO projections. Todays exam was compared to the prior exams(s). By history, the patient has no complaints of a palpable breast abnormality or other significant breast complaints. The breasts are unchanged in size and shape. Once again, dense heterogenous fibroglandular elements are seen bilaterally in a stable appearing pattern but to such a degree that the sensitivity of the mammogram in detecting cancer is decreased.There are no willam-soft tissue densities or spiculated masses. There is no internal architectural distortion. There are no suspicious willam-calcific clusters. Skin thickening or nipple retraction is not present. IMPRESSION: BI-RADS Category 2- Benign Findings(s). There is no evidence of malignant alteration of the breasts. Followup examination recommended in one year. The Volpara volumetric breast density category is D, the breasts are extremely dense which lowers the sensitivity of mammography. This mammogram was read with the assistance of [employer],an FDA approved computer aided detection system for mammography. The lifetime Tyrer-Cuzick score is 16.1 % Negative x-ray reports should not delay surgical consultation if a dominant or clinically suspicious mass is present. Not all breast cancers can be identified by mammography. Therefore, we recommend that you continue to perform regular breast self-examination and physical examination and then promptly contact your physician of any concerns or changes. Adenosis and dense breasts may obscure an underlying neoplasm. Assessment: BI-RADS/ACR category 2 mammogram. Benign Findings. Recommendation Routine screening mammogram of both breasts in 1 year. Electronically Signed By: Chilango Reese DO 06/11/20 [id number]
== END ==
LOC: M WHC 08:18
PROVIDERS: ATTEND Surgery
DX: Z12.31 Encounter for screening mammogram for malignant neoplasm of breast (principal); Z80.8 Family history of malignant neoplasm of other organs or systems; Z86.018 Personal history of other benign neoplasm

== ENCOUNTER → 2020-08-13 | Outpatient (CLI) | payer OTHER ==
--- NOTE | 2020-08-13 13:51 | REPVR ---
PROCEDURE INFORMATION: Exam: MR Lumbar Spine Without Contrast Exam date and time: 08/13/2020 11:57 AM Age: 30 years old Clinical indication: Low back pain; Additional info: Lumbago with sciatica RT side TECHNIQUE: Imaging protocol: Multiplanar magnetic resonance images of the lumbar spine without intravenous contrast. COMPARISON: None available. FINDINGS: Vertebrae: There is no fracture or listhesis. Marrow signal is within normal limits. Spinal cord: Normal signal. No cord compression. L1-L2: No significant disc disease. No significant spinal canal stenosis. No neural foraminal stenosis. L2-L3: There is shallow disc bulging. No significant spinal canal stenosis. No neural foraminal stenosis. L3-L4: There is shallow disc bulging. There is mild facet hypertrophy. No significant spinal canal stenosis. No neural foraminal stenosis. L4-L5: There is shallow disc bulging with a right foraminal/extraforaminal annular tear. There is moderate facet hypertrophy. There is mild bilateral neural foraminal narrowing. L5-S1: No significant disc disease. No significant spinal canal stenosis. No neural foraminal stenosis. Soft tissues: Unremarkable. IMPRESSION: Degenerative disc disease and spondylosis. At L4/5, changes contribute to mild bilateral neural foraminal narrowing. Electronically signed by: Carine Cote On 08/13/2020 13:50:48 PM
== END ==
LOC: M PLAIMG 10:58
PROVIDERS: ATTEND Family Medicine
DX: M47.816 Spondylosis without myelopathy or radiculopathy, lumbar region (principal); M54.41 Lumbago with sciatica, right side

== ENCOUNTER → 2020-11-27 | Outpatient (REF) | payer OTHER ==
[2020-11-27 16:19] LABS: APPEARANCE, URINE CLOUDY (CLEAR); BACTERIA, URINE AUTO 1+ (NEGATIVE); BILIRUBIN, URINE AUTO NEGATIVE (NEGATIVE); BLOOD, URINE BLOOD NEGATIVE (NEGATIVE); COLOR, URINE YELLOW (YELLOW); GLUCOSE, URINE (UA) AUTO NEGATIVE (NEGATIVE); KETONE, URINE AUTO NEGATIVE (NEGATIVE); LEUKOCYTE ESTERASE, URINE AUTO NEGATIVE (NEGATIVE); MUCUS, URINE SMALL (NEGATIVE); NITRITE, URINE AUTO NEGATIVE (NEGATIVE); PROTEIN, URINE AUTO NEGATIVE (NEGATIVE); RBC, URINE AUTO 2 /HPF (0-3); SPECIFIC GRAVITY URINE AUTO 1.011 (1.002-1.035); SQUAMOUS EPITHELIAL CELL UR AU 4 /HPF (0-6); UROBILINOGEN, URINE AUTO 0.2 mg/dL (0.0-2.0); WBC, URINE AUTO 24 /HPF (0-3)
== END ==
LOC: M SFHCCLAY 09:58
PROVIDERS: ATTEND Family Medicine
DX: R31.9 Hematuria, unspecified (principal)

== ENCOUNTER → 2021-05-03 | Outpatient (CLI) | payer OTHER ==
[~2021-05-03] MED LIST changes: +PROHANCE 279.3MG/ML 15ML VIAL ONE
== END ==
LOC: M PLAIMG 08:04
PROVIDERS: ATTEND Nurse Practitioner Women's Health
DX: Z91.89 Other specified personal risk factors, not elsewhere classified (principal)
CPT/HCPCS: 77049; A9576

== ENCOUNTER → 2021-08-07 | Outpatient (REF) | payer MEDICAID, OTHER ==
[~2021-08-07] MED LIST changes: -PROHANCE 279.3MG/ML 15ML VIAL ONE
[2021-08-07 17:46] LABS: BASO # 0.1 10^3/uL (0.0-0.2); BASO % 0.7 % (0.0-1.0); EOS # 0.2 10^3/uL (0.0-0.5); EOS % 1.7 % (0.0-3.0); HEMATOCRIT 41.5 % (36.0-47.0); HEMOGLOBIN 15.1 g/dl (12.0-15.5); LYMPH # 1.9 10^3/uL (1.5-5.0); LYMPH % 14.3 % (24.0-44.0); MEAN CORPUSCULAR HEMOGLOBIN 33.8 pg (27.0-33.0); MEAN CORPUSCULAR HGB CONC 36.4 g/dl (32.0-36.5); MEAN CORPUSCULAR VOLUME 92.8 fl (80.0-96.0); MONO # 1.2 10^3/uL (0.0-0.8); NEUTROPHILS # 9.8 10^3/uL (1.5-8.5); NEUTROPHILS % 73.8 % (36.0-66.0); PLATELET COUNT, AUTOMATED 240 10^3/uL (150-450); RED BLOOD COUNT 4.47 10^6/uL (4.00-5.40); WHITE BLOOD COUNT 13.2 10^3/uL (4.0-10.0)
[2021-08-07 17:50] LABS: ALBUMIN 4.2 GM/DL (3.2-5.2); ALT/SGPT 16 U/L (12-78); BILIRUBIN,TOTAL 0.8 MG/DL (0.2-1.0); BLOOD UREA NITROGEN 13 MG/DL (7-18); CALCIUM LEVEL 9.5 MG/DL (8.5-10.1); CARBON DIOXIDE LEVEL 19 MEQ/L (21-32); CHLORIDE LEVEL 106 MEQ/L (98-107); CREATININE FOR GFR 0.93 MG/DL (0.55-1.30); GLOMERULAR FILTRATION RATE > 60.0 (>60); GLUCOSE, FASTING 76 MG/DL (70-100); POTASSIUM SERUM 3.6 MEQ/L (3.5-5.1); SODIUM LEVEL 138 MEQ/L (136-145); TOTAL PROTEIN 7.3 GM/DL (6.4-8.2)
[2021-08-07 17:55] LABS: VITAMIN B12 LEVEL 599 PG/ML (247-911)
== END ==
LOC: M SFHCCLAY 15:51
PROVIDERS: ATTEND Physician Assistant
DX: R06.02 Shortness of breath (principal)

== ENCOUNTER → 2021-08-23 | Outpatient (CLI) | payer OTHER | LOC: M WHC 07:59 | PROVIDERS: ATTEND Nurse Practitioner Women's Health | DX: Z12.31 Encounter for screening mammogram for malignant neoplasm of breast (principal); Z80.3 Family history of malignant neoplasm of breast ==

== ENCOUNTER → 2022-03-26 | Outpatient (CLI) | payer OTHER ==
[2022-03-26 11:00] LABS: BASO # 0.1 10^3/uL (0.0-0.2); BASO % 1.6 % (0.0-1.0); EOS # 0.5 10^3/uL (0.0-0.5); EOS % 8.6 % (0.0-3.0); HEMATOCRIT 44.9 % (36.0-47.0); HEMOGLOBIN 15.4 g/dl (12.0-15.5); LYMPH # 2.2 10^3/uL (1.5-5.0); LYMPH % 34.4 % (24.0-44.0); MEAN CORPUSCULAR HEMOGLOBIN 33.6 pg (27.0-33.0); MEAN CORPUSCULAR HGB CONC 34.3 g/dl (32.0-36.5); MEAN CORPUSCULAR VOLUME 97.8 fl (80.0-96.0); MONO # 0.8 10^3/uL (0.0-0.8); MONO % 12.1 % (2.0-8.0); NEUTROPHILS # 2.7 10^3/uL (1.5-8.5); NEUTROPHILS % 42.8 % (36.0-66.0); PLATELET COUNT, AUTOMATED 262 10^3/uL (150-450); RED BLOOD COUNT 4.59 10^6/uL (4.00-5.40); WHITE BLOOD COUNT 6.3 10^3/uL (4.0-10.0)
[2022-03-26 11:14] LABS: ERYTHROCYTE SEDIMENTATION RATE 3 mm/hr (0-20)
[2022-03-26 11:27] LABS: ALBUMIN 3.7 G/DL (3.2-5.2); ALKALINE PHOSPHATASE 77 U/L (46-116); ALT/SGPT 18 U/L (7.0-40); AST/SGOT 17 U/L (<34); BILIRUBIN,TOTAL 0.4 MG/DL (0.3-1.2); BLOOD UREA NITROGEN 12 MG/DL (9-23); CALCIUM LEVEL 9.3 MG/DL (8.5-10.1); CARBON DIOXIDE LEVEL 31 MMOL/L (20-31); CHLORIDE LEVEL 105 MMOL/L (98-107); CREATININE FOR GFR 0.77 MG/DL (0.55-1.30); GLOMERULAR FILTRATION RATE > 60.0 (>60); GLUCOSE, FASTING 87 MG/DL (60-100); PHOSPHORUS LEVEL 4.1 MG/DL (2.5-4.9); POTASSIUM SERUM 4.7 MMOL/L (3.5-5.1); SODIUM LEVEL 140 MMOL/L (136-145); TOTAL PROTEIN 6.8 G/DL (5.7-8.2)
[2022-03-26 11:28] LABS: THYROID STIMULATING HORMONE 1.621 uIU/ML (0.55-4.78)
[2022-03-27 16:09] LABS: ANTINUCLEAR ANTIBODIES DIRECT Negative (Negative)
== END ==
LOC: M PLALAB 08:47
PROVIDERS: ATTEND Psychiatry & Neurology Neurology
DX: R55 Syncope and collapse (principal)

== ENCOUNTER 2022-08-06 14:15 | Emergency (ER) | payer OTHER, SELFPAY ==
[~2022-08-06] VITALS: Ht 175.3 cm; Wt 69.5 kg
[2022-08-06 14:16] VITALS: TEMP 98.1
[2022-08-06] MEDS ORDERED: ZYRTTAB8 PO (14:29)
[2022-08-06] MEDS ORDERED: FAMO40TA3 (14:29)
[2022-08-06] MEDS ORDERED: PREG200C (14:29)
[2022-08-06] MEDS ORDERED: PRAZ1CAP (14:29)
[2022-08-06] MEDS ORDERED: AMPHETA/DEXTRO (14:29)
[2022-08-06] MEDS ORDERED: VRAY4.5C (14:29)
[2022-08-06 15:12] LABS: BASO % 0.9 % (0.0-1.0); EOS # 0.2 10^3/uL (0.0-0.5); EOS % 3.3 % (0.0-3.0); HEMATOCRIT 40.2 % (36.0-47.0); HEMOGLOBIN 13.4 g/dl (12.0-15.5); LYMPH # 1.5 10^3/uL (1.5-5.0); LYMPH % 33.8 % (24.0-44.0); MEAN CORPUSCULAR HEMOGLOBIN 32.4 pg (27.0-33.0); MEAN CORPUSCULAR HGB CONC 33.3 g/dl (32.0-36.5); MEAN CORPUSCULAR VOLUME 97.1 fl (80.0-96.0); MONO # 0.5 10^3/uL (0.0-0.8); MONO % 11.7 % (2.0-8.0); NEUTROPHILS # 2.3 10^3/uL (1.5-8.5); NEUTROPHILS % 50.1 % (36.0-66.0); PLATELET COUNT, AUTOMATED 182 10^3/uL (150-450); RED BLOOD COUNT 4.14 10^6/uL (4.00-5.40); WHITE BLOOD COUNT 4.5 10^3/uL (4.0-10.0)
[2022-08-06 15:40] LABS: LIPASE 43 U/L (12-53)
[2022-08-06 15:42] LABS: ALBUMIN 3.3 G/DL (3.2-5.2); ALKALINE PHOSPHATASE 158 U/L (46-116); ALT/SGPT 954 U/L (7.0-40); AST/SGOT 822 U/L (<34); BILIRUBIN,DIRECT 5.5 MG/DL (<0.4); BILIRUBIN,TOTAL 7.3 MG/DL (0.3-1.2); BLOOD UREA NITROGEN 6 MG/DL (9-23); CALCIUM LEVEL 8.7 MG/DL (8.5-10.1); CARBON DIOXIDE LEVEL 27 MMOL/L (20-31); CHLORIDE LEVEL 104 MMOL/L (98-107); CREATININE FOR GFR 0.81 MG/DL (0.55-1.30); GLOMERULAR FILTRATION RATE > 60.0 (>60); GLUCOSE, FASTING 105 MG/DL (60-100); POTASSIUM SERUM 3.5 MMOL/L (3.5-5.1); SODIUM LEVEL 139 MMOL/L (136-145); TOTAL PROTEIN 6.2 G/DL (5.7-8.2)
[2022-08-06 15:52] LABS: HCG, SERUM QUALITATIVE NEGATIVE (NEGATIVE)
[2022-08-06 19:21] VITALS: BP 116/77; O2SAT 100
[2022-08-06 19:22] LABS: INR 1.11; PROTHROMBIN TIME 14.5 SECONDS (12.5-14.5)
[2022-08-06 19:23] LABS: PARTIAL THROMBOPLASTIN TIME 35.4 SECONDS (24.8-34.2)
== END 2022-08-06 19:22 | disposition home or self-care (01) ==
LOC: M ED 14:15
DX: R74.01 Elevation of levels of liver transaminase levels (principal); R17 Unspecified jaundice; R51.9 Headache, unspecified; F31.9 Bipolar disorder, unspecified; F17.200 Nicotine dependence, unspecified, uncomplicated; Z91.040 Latex allergy status; Z79.899 Other long term (current) drug therapy

== ENCOUNTER → 2022-09-16 | Outpatient (CLI) | payer OTHER, MEDICAID ==
[~2022-09-16] MED LIST changes: -AMIT25TA17 PO; +AMIT25TA19 PO; +AMPHETA/DEXTRO; +FAMO40TA3; +PRAZ1CAP; +PREG200C; +VRAY4.5C; +ZYRTTAB8 PO
== END ==
LOC: M CLY 15:36
PROVIDERS: ATTEND Nurse Practitioner Family
DX: R06.02 Shortness of breath (principal)

== ENCOUNTER → 2022-09-16 | Outpatient (REF) | payer OTHER, MEDICAID ==
[~2022-09-16] MED LIST changes: +AMIT25TA17 PO; -AMIT25TA19 PO
[2022-09-16 18:31] LABS: ALBUMIN 4.2 G/DL (3.2-5.2); ALKALINE PHOSPHATASE 76 U/L (46-116); ALT/SGPT 163 U/L (7.0-40); AST/SGOT 82 U/L (<34); BILIRUBIN,TOTAL 1.6 MG/DL (0.3-1.2); BLOOD UREA NITROGEN 6 MG/DL (9-23); CALCIUM LEVEL 9.4 MG/DL (8.5-10.1); CARBON DIOXIDE LEVEL 26 MMOL/L (20-31); CHLORIDE LEVEL 105 MMOL/L (98-107); CREATININE FOR GFR 0.67 MG/DL (0.55-1.30); GLOMERULAR FILTRATION RATE > 60.0 (>60); GLUCOSE, FASTING 76 MG/DL (60-100); POTASSIUM SERUM 3.7 MMOL/L (3.5-5.1); SODIUM LEVEL 143 MMOL/L (136-145); TOTAL PROTEIN 7.2 G/DL (5.7-8.2)
== END ==
LOC: M SFHCCLAY 15:08
PROVIDERS: ATTEND Nurse Practitioner Family
DX: R17 Unspecified jaundice (principal); R74.8 Abnormal levels of other serum enzymes

== ENCOUNTER → 2022-10-21 | Outpatient (REF) | payer MEDICAID, OTHER ==
[~2022-10-21] MED LIST changes: -AMIT25TA17 PO; +AMIT25TA19 PO; -PREG200C; +PREG200C2
[2022-10-21 17:52] LABS: BASO # 0.1 10^3/uL (0.0-0.2); BASO % 1.3 % (0.0-1.0); EOS # 0.1 10^3/uL (0.0-0.5); EOS % 2.6 % (0.0-3.0); HEMOGLOBIN 14.9 g/dl (12.0-15.5); LYMPH # 2.3 10^3/uL (1.5-5.0); LYMPH % 42.6 % (24.0-44.0); MEAN CORPUSCULAR HEMOGLOBIN 32.7 pg (27.0-33.0); MEAN CORPUSCULAR HGB CONC 34.7 g/dl (32.0-36.5); MEAN CORPUSCULAR VOLUME 94.3 fl (80.0-96.0); MONO # 0.7 10^3/uL (0.0-0.8); MONO % 13.3 % (2.0-8.0); NEUTROPHILS # 2.2 10^3/uL (1.5-8.5); PLATELET COUNT, AUTOMATED 160 10^3/uL (150-450); RED BLOOD COUNT 4.56 10^6/uL (4.00-5.40); WHITE BLOOD COUNT 5.5 10^3/uL (4.0-10.0)
[2022-10-21 18:03] LABS: ALBUMIN 4.3 G/DL (3.2-5.2); ALKALINE PHOSPHATASE 58 U/L (46-116); ALT/SGPT 34 U/L (7.0-40); AST/SGOT 29 U/L (<34); BILIRUBIN,TOTAL 1.5 MG/DL (0.3-1.2); BLOOD UREA NITROGEN 8 MG/DL (9-23); CALCIUM LEVEL 9.1 MG/DL (8.5-10.1); CARBON DIOXIDE LEVEL 30 MMOL/L (20-31); CHLORIDE LEVEL 104 MMOL/L (98-107); GLOMERULAR FILTRATION RATE > 60.0 (>60); GLUCOSE, FASTING 86 MG/DL (60-100); POTASSIUM SERUM 3.5 MMOL/L (3.5-5.1); SODIUM LEVEL 141 MMOL/L (136-145); TOTAL PROTEIN 7.4 G/DL (5.7-8.2)
== END ==
LOC: M SFHCCLAY 10:01
PROVIDERS: ATTEND Nurse Practitioner Family
DX: R74.8 Abnormal levels of other serum enzymes (principal)

== ENCOUNTER → 2022-11-20 | Outpatient (CLI) | payer OTHER | LOC: M PLAIMG 10:05 | PROVIDERS: ATTEND Nurse Practitioner Family | DX: R74.8 Abnormal levels of other serum enzymes (principal); K76.0 Fatty (change of) liver, not elsewhere classified; K76.89 Other specified diseases of liver ==

== ENCOUNTER → 2022-12-29 | Outpatient (REF) | payer OTHER, MEDICAID | LOC: M SFHCCLAY 10:28 | PROVIDERS: ATTEND Nurse Practitioner Family | DX: Z53.9 Procedure and treatment not carried out, unspecified reason (principal) ==

== ENCOUNTER → 2022-12-30 | Outpatient (REF) | payer OTHER, MEDICAID ==
[2022-12-30 17:36] LABS: BASO # 0.1 10^3/uL (0.0-0.2); BASO % 1.1 % (0.0-1.0); EOS # 0.4 10^3/uL (0.0-0.5); EOS % 5.8 % (0.0-3.0); HEMOGLOBIN 14.3 g/dl (12.0-15.5); LYMPH # 2.3 10^3/uL (1.5-5.0); LYMPH % 37.5 % (24.0-44.0); MEAN CORPUSCULAR HEMOGLOBIN 32.9 pg (27.0-33.0); MEAN CORPUSCULAR VOLUME 96.6 fl (80.0-96.0); MONO # 0.6 10^3/uL (0.0-0.8); MONO % 10.1 % (2.0-8.0); NEUTROPHILS # 2.8 10^3/uL (1.5-8.5); NEUTROPHILS % 45.2 % (36.0-66.0); PLATELET COUNT, AUTOMATED 165 10^3/uL (150-450); RED BLOOD COUNT 4.35 10^6/uL (4.00-5.40); WHITE BLOOD COUNT 6.2 10^3/uL (4.0-10.0)
[2022-12-30 17:40] LABS: ALKALINE PHOSPHATASE 50 U/L (46-116); ALT/SGPT 18 U/L (7.0-40); AST/SGOT 20 U/L (<34); BILIRUBIN,TOTAL 0.7 MG/DL (0.3-1.2); BLOOD UREA NITROGEN 6 MG/DL (9-23); CALCIUM LEVEL 8.9 MG/DL (8.5-10.1); CARBON DIOXIDE LEVEL 30 MMOL/L (20-31); CHLORIDE LEVEL 107 MMOL/L (98-107); CREATININE FOR GFR 0.64 MG/DL (0.55-1.30); GLOMERULAR FILTRATION RATE > 60.0 (>60); GLUCOSE, FASTING 98 MG/DL (60-100); POTASSIUM SERUM 3.4 MMOL/L (3.5-5.1); SODIUM LEVEL 144 MMOL/L (136-145); TOTAL PROTEIN 6.9 G/DL (5.7-8.2)
== END ==
LOC: M SFHCCLAY 10:48
PROVIDERS: ATTEND Nurse Practitioner Family
DX: R74.8 Abnormal levels of other serum enzymes (principal); R31.9 Hematuria, unspecified; F90.9 Attention-deficit hyperactivity disorder, unspecified type

== ENCOUNTER 2023-08-21 18:42 | Inpatient (IN) | payer OTHER, SELFPAY ==
[~2023-08-21] VITALS: Ht 175.3 cm; Wt 69.6 kg
[~2023-08-21 18:42] MED LIST changes: +ADDE30CA3 PO; +B-1100TA2 PO; -FAMO40TA3; +FAMO40TA3 PO; +FOLI1TAB11 PO; +LACT10SO3 PO; +LITH300C PO; -PRAZ1CAP; +PRAZ1CAP PO; -PREG200C2; +PREG200C2 PO; +PROP20TA72 PO; +VIIB20TA PO; +VITA100093 PO; -VRAY4.5C; +VRAY4.5C PO; +XANA0.5T PO
[2023-08-21 19:20] LABS: HEMATOCRIT 46.3 % (36.0-47.0); HEMOGLOBIN 16.1 g/dl (12.0-15.5); MEAN CORPUSCULAR HEMOGLOBIN 35.1 pg (27.0-33.0); MEAN CORPUSCULAR HGB CONC 34.8 g/dl (32.0-36.5); MEAN CORPUSCULAR VOLUME 100.9 fl (80.0-96.0); PLATELET COUNT, AUTOMATED 221 10^3/uL (150-450); RED BLOOD COUNT 4.59 10^6/uL (4.00-5.40); WHITE BLOOD COUNT 5.8 10^3/uL (4.0-10.0)
[2023-08-21] MEDS: LORazepam 1 MG TAB PO STA (19:42)
[2023-08-21 19:50] LABS: ETHYL ALCOHOL (ETHANOL) 0.287 % (0.000-0.010)
[2023-08-21 19:52] LABS: ALBUMIN 3.7 G/DL (3.2-5.2); ALKALINE PHOSPHATASE 85 U/L (46-116); ALT/SGPT 195 U/L (7.0-40); AST/SGOT 132 U/L (<34); BILIRUBIN,DIRECT 0.1 MG/DL (<0.4); BILIRUBIN,TOTAL 0.4 MG/DL (0.3-1.2); BLOOD UREA NITROGEN 8 MG/DL (9-23); CALCIUM LEVEL 8.4 MG/DL (8.5-10.1); CARBON DIOXIDE LEVEL 26 MMOL/L (20-31); CHLORIDE LEVEL 107 MMOL/L (98-107); CREATININE FOR GFR 0.66 MG/DL (0.55-1.30); GLOMERULAR FILTRATION RATE > 60.0 (>60); GLUCOSE, FASTING 80 MG/DL (60-100); LITHIUM LEVEL < 0.10 MMOL/L (1.0-1.20); POTASSIUM SERUM 3.7 MMOL/L (3.5-5.1); SALICYLATE LEVEL < 3.0 MG/DL (<30); SODIUM LEVEL 143 MMOL/L (136-145); TOTAL PROTEIN 6.7 G/DL (5.7-8.2)
[2023-08-21 19:54] LABS: THYROID STIMULATING HORMONE 1.716 uIU/ML (0.55-4.78)
[2023-08-21 20:05] LABS: HCG, SERUM QUALITATIVE NEGATIVE (NEGATIVE)
[2023-08-21 20:27] LABS: AMPHETAMINES LEVEL URINE NEGATIVE (NEGATIVE); BARBITURATES URINE NEGATIVE (NEGATIVE); COCAINE METABOLITE URINE NEGATIVE (NEGATIVE); METHADONE URINE NEGATIVE (NEGATIVE); OPIATES URINE NEGATIVE (NEGATIVE); PHENCYCLIDINE URINE NEGATIVE (NEGATIVE)
[2023-08-21 20:29] LABS: BENZODIAZEPINES URINE POSITIVE (NEGATIVE); CANNABINOIDS URINE POSITIVE (NEGATIVE)
[2023-08-21] MEDS: HALOPERIDOL LACTATE 5MG/ML VIAL IM ONE (21:26)
[2023-08-21] MEDS: LORazepam 2 MG/ML 1ML VIAL IM ONE (21:26)
[2023-08-22] MEDS ORDERED: HOME MED LIST COMPLETE! XX SCH (09:10)
[2023-08-23] MEDS: CARIPRAZINE 1.5MG CAPSULE (VRAYLAR) PO SCH (09:00)
[2023-08-23] MEDS: ADDERALL 5 MG TAB PO SCH (09:00)
[2023-08-23] MEDS ORDERED: VIIB40TA PO (09:47)
[2023-08-23] MEDS ORDERED: ADDE30TA PO (09:47)
[2023-08-23] MEDS ORDERED: LITH150C PO (09:47)
[2023-08-23] MEDS ORDERED: ALPR0.5T3 PO (09:47)
[2023-08-23] MEDS ORDERED: VENTAER INH (09:47)
[2023-08-23] MEDS ORDERED: PREG100C2 PO (10:15)
[2023-08-23] MEDS ORDERED: PRAZ2CAP PO (10:15)
[2023-08-23] MEDS ORDERED: HOME MED LIST COMPLETE! XX SCH (10:15)
[2023-08-23] MEDS: PREGABALIN 100 MG CAP (LYRICA) PO SCH (12:36)
[2023-08-23] MEDS ORDERED: PROPAFENONE 150 MG TAB PO SCH (21:00)
[2023-08-23] MEDS ORDERED: PROPRANOLOL 20 MG TAB PO SCH (21:00)
[2023-08-23] MEDS ORDERED: OLANZapine 5 MG TAB PO PRN (21:15)
[2023-08-23] MEDS ORDERED: MAALOX 30 ML SUSP *UDC PO PRN (21:15)
[2023-08-23] MEDS ORDERED: diphenhydrAMINE 25MG CAP PO PRN (21:15)
[2023-08-23] MEDS ORDERED: ACETAMINOPHEN TAB 650MG DOSE (2X325MG) PO PRN (21:15)
[2023-08-23] MEDS ORDERED: MOM 30ML SUSPENSION UDC PO PRN (21:15)
[2023-08-23] MEDS ORDERED: IBUPROFEN 400MG TAB PO PRN (21:15)
[2023-08-23] MEDS: ALPRAZolam 0.5 MG TAB PO SCH (22:06)
[2023-08-23] MEDS: PRAZOSIN 1 MG CAP PO SCH (22:06)
[2023-08-23] MEDS ORDERED: LORazepam 2 MG TAB PO PRN (22:10)
[2023-08-23 23:15] VITALS: BP 144/85; TEMP 97.3; O2SAT 99
[2023-08-23] MEDS: traZODone 50 MG TAB PO PRN (23:53)
[2023-08-24 07:08] VITALS: BP 132/83; TEMP 98; O2SAT 98
[2023-08-24 08:10] VITALS: BP 123/90
[2023-08-24] MEDS ORDERED: DEXTROMETHORPHAN 60MG/10ML SUSP 90ML BTL(DELSYM) PO SCH (09:00)
[2023-08-24] MEDS ORDERED: ALBUTEROL 90 MCG/ACT 8GM HFA INHALER INH PRN (10:50)
[2023-08-24 11:13] VITALS: BP 116/77
[2023-08-24 11:14] VITALS: BP 116/77
[2023-08-24] MEDS: PROPRANOLOL 20 MG TAB PO SCH (11:14)
[2023-08-24] MEDS: THIAMINE 100 MG TAB PO SCH (11:14)
[2023-08-24] MEDS: FOLIC ACID 1MG TAB PO SCH (11:15)
[2023-08-24] MEDS: MULTIVITAMINS/MINERALS THERAP 1 TAB PO SCH (11:15)
[2023-08-24] MEDS: ALPRAZolam 0.5 MG TAB PO SCH (11:16)
[2023-08-24] MEDS ORDERED: Multivitamins PO (13:29)
[2023-08-24] MEDS ORDERED: THIA100TA PO (13:29)
[2023-08-24] MEDS ORDERED: FOLI1TAB11 PO (13:29)
[2023-08-24] MEDS: PREGABALIN 100 MG CAP (LYRICA) PO SCH (14:00)
[2023-08-24] MEDS ORDERED: PRAZOSIN 1 MG CAP PO SCH (21:00)
== END 2023-08-24 14:19 | disposition home or self-care (01) | DRG 753 ==
LOC: EDBD 18:42 → M ED 18:42 → M ED INP 08-23 21:14 → M PSY 08-23 22:14
PROVIDERS: ADMIT Psychiatry & Neurology Psychiatry; ATTEND Student in an Organized Health Care Education/Training Program
DX: F31.9 Bipolar disorder, unspecified (principal); F90.9 Attention-deficit hyperactivity disorder, unspecified type; F41.9 Anxiety disorder, unspecified; F10.90 Alcohol use, unspecified, uncomplicated; F12.90 Cannabis use, unspecified, uncomplicated; R45.851 Suicidal ideations; F43.10 Post-traumatic stress disorder, unspecified; M79.7 Fibromyalgia; J45.909 Unspecified asthma, uncomplicated; Z79.899 Other long term (current) drug therapy; Z91.040 Latex allergy status

== ENCOUNTER → 2024-05-16 | Outpatient (CLI) | payer OTHER ==
[~2024-05-16] MED LIST changes: +ADDE30TA PO; +ALEV220T22 PO; +ALPR0.5T3 PO; +ATEN50TA2 PO; -LACT10SO3 PO; +LACT10SO94 PO; +Multivitamins PO; +PRAZ2CAP PO; +PREG100C2 PO; +THIA100TA PO; +VENTAER INH; +VIIB40TA PO
[2024-05-16 11:11] LABS: BASO # 0.1 10^3/uL (0.0-0.2); BASO % 0.9 % (0.0-1.0); EOS # 0.2 10^3/uL (0.0-0.5); EOS % 3.1 % (0.0-3.0); HEMATOCRIT 47.8 % (36.0-47.0); HEMOGLOBIN 16.7 g/dl (12.0-15.5); LYMPH # 1.8 10^3/uL (1.5-5.0); LYMPH % 30.4 % (24.0-44.0); MEAN CORPUSCULAR HEMOGLOBIN 33.6 pg (27.0-33.0); MEAN CORPUSCULAR HGB CONC 34.9 g/dl (32.0-36.5); MEAN CORPUSCULAR VOLUME 96.2 fl (80.0-96.0); MONO # 0.5 10^3/uL (0.0-0.8); MONO % 7.7 % (2.0-8.0); NEUTROPHILS # 3.4 10^3/uL (1.5-8.5); NEUTROPHILS % 57.7 % (36.0-66.0); PLATELET COUNT, AUTOMATED 305 10^3/uL (150-450); RED BLOOD COUNT 4.97 10^6/uL (4.00-5.40); WHITE BLOOD COUNT 5.8 10^3/uL (4.0-10.0)
[2024-05-16 11:20] LABS: INR 0.93; PROTHROMBIN TIME 12.7 SECONDS (12.5-14.5)
[2024-05-16 11:42] LABS: ALBUMIN 4.4 G/DL (3.2-5.2); ALKALINE PHOSPHATASE 75 U/L (35-104); ALT/SGPT 21 U/L (7.0-40); AST/SGOT 17 U/L (<34); BILIRUBIN,TOTAL 0.9 MG/DL (0.3-1.2); BLOOD UREA NITROGEN 13 MG/DL (9-23); CALCIUM LEVEL 9.7 MG/DL (8.5-10.1); CARBON DIOXIDE LEVEL 28 MMOL/L (20-31); CHLORIDE LEVEL 104 MMOL/L (98-107); CREATININE FOR GFR 0.76 MG/DL (0.55-1.30); GLOMERULAR FILTRATION RATE > 60.0 (>60); GLUCOSE, FASTING 99 MG/DL (60-100); IRON (FE) 153 UG/DL (50-170); POTASSIUM SERUM 3.7 MMOL/L (3.5-5.1); SODIUM LEVEL 140 MMOL/L (136-145); TOTAL IRON BINDING CAPACITY 294 UG/DL (250-425)
[2024-05-16 11:56] LABS: HEPATITIS B SURFACE ANTIGEN NEGATIVE (NEGATIVE)
[2024-05-16 12:17] LABS: HEPATITIS B CORE ANTIBODY IGM NEGATIVE (NEGATIVE); HEPATITIS C VIRUS ABY INDEX 0.02 INDEX (<0.8)
[2024-05-18 15:12] LABS: ANA PATTERN Nuclear, Speckled (NEGATIVE); ANA SCREEN, IFA POSITIVE (NEGATIVE); ANA TITER 1:40 titer (<1:40)
== END ==
LOC: M LAB 09:36
PROVIDERS: ATTEND Internal Medicine Gastroenterology
DX: K70.9 Alcoholic liver disease, unspecified (principal)

== ENCOUNTER 2024-05-24 08:43 | Day surgery (SDC) | payer OTHER ==
[~2024-05-24] VITALS: Ht 175.3 cm; Wt 68.5 kg
[2024-05-24] MEDS ORDERED: fentaNYL 100 MCG/2 ML INJECTION As Ordered ONE (09:51)
[2024-05-24] MEDS ORDERED: propofoL 200 MG/20 ML VIAL As Ordered ONE (09:53)
[2024-05-24] MEDS ORDERED: LIDOCAINE 2% 100MG/5ML SDV (FOR ANES.) As Ordered ONE (09:53)
[2024-05-24] MEDS ORDERED: GLYCOPYRROLATE INJ 0.2 MG/ML 2 ML VIAL As Ordered ONE (09:53)
[2024-05-24 10:26] VITALS: TEMP 98
[2024-05-24 10:52] VITALS: BP 134/91; O2SAT 93
== END 2024-05-24 10:57 | disposition home or self-care (01) ==
LOC: M OPP 08:43
PROVIDERS: ATTEND Internal Medicine Gastroenterology
DX: K63.5 Polyp of colon (principal); K64.8 Other hemorrhoids; K92.1 Melena; K29.70 Gastritis, unspecified, without bleeding; R12 Heartburn; G47.30 Sleep apnea, unspecified; Z79.899 Other long term (current) drug therapy; R56.9 Unspecified convulsions; F17.290 Nicotine dependence, other tobacco product, uncomplicated; J45.909 Unspecified asthma, uncomplicated
CPT/HCPCS: 43239; 45385; 88305; J1596; J3010

== ENCOUNTER 2024-06-08 18:09 | Inpatient (IN) | payer OTHER ==
[~2024-06-08] VITALS: Ht 172.7 cm; Wt 64.2 kg
[2024-06-08 18:54] LABS: HEMATOCRIT 42.2 % (36.0-47.0); HEMOGLOBIN 14.8 g/dl (12.0-15.5); MEAN CORPUSCULAR HEMOGLOBIN 33.7 pg (27.0-33.0); MEAN CORPUSCULAR HGB CONC 35.1 g/dl (32.0-36.5); MEAN CORPUSCULAR VOLUME 96.1 fl (80.0-96.0); PLATELET COUNT, AUTOMATED 281 10^3/uL (150-450); RED BLOOD COUNT 4.39 10^6/uL (4.00-5.40); WHITE BLOOD COUNT 6.4 10^3/uL (4.0-10.0)
[2024-06-08 19:16] LABS: ETHYL ALCOHOL (ETHANOL) 0.196 % (0.000-0.010)
[2024-06-08 19:18] LABS: ALBUMIN 4.4 G/DL (3.2-5.2); ALKALINE PHOSPHATASE 54 U/L (35-104); ALT/SGPT 20 U/L (7.0-40); AST/SGOT 16 U/L (<34); BILIRUBIN,DIRECT 0.2 MG/DL (<0.4); BILIRUBIN,TOTAL 0.6 MG/DL (0.3-1.2); BLOOD UREA NITROGEN 7 MG/DL (9-23); CALCIUM LEVEL 9.3 MG/DL (8.5-10.1); CARBON DIOXIDE LEVEL 20 MMOL/L (20-31); CHLORIDE LEVEL 110 MMOL/L (98-107); CREATININE FOR GFR 0.74 MG/DL (0.55-1.30); GLOMERULAR FILTRATION RATE > 90.0 (>60); GLUCOSE, FASTING 109 MG/DL (60-100); POTASSIUM SERUM 3.6 MMOL/L (3.5-5.1); SALICYLATE LEVEL < 3.0 MG/DL (<30); SODIUM LEVEL 145 MMOL/L (136-145); TOTAL PROTEIN 7.8 G/DL (5.7-8.2)
[2024-06-08 19:20] LABS: HCG, SERUM QUALITATIVE NEGATIVE (NEGATIVE); THYROID STIMULATING HORMONE 2.321 uIU/ML (0.55-4.78)
[2024-06-09 04:34] LABS: AMPHETAMINES LEVEL URINE NEGATIVE (NEGATIVE); BARBITURATES URINE NEGATIVE (NEGATIVE); BENZODIAZEPINES URINE NEGATIVE (NEGATIVE); CANNABINOIDS URINE POSITIVE (NEGATIVE); COCAINE METABOLITE URINE NEGATIVE (NEGATIVE); METHADONE URINE NEGATIVE (NEGATIVE); PHENCYCLIDINE URINE NEGATIVE (NEGATIVE)
[2024-06-09] MEDS ORDERED: MOM 30ML SUSPENSION UDC PO PRN (04:55)
[2024-06-09] MEDS ORDERED: traZODone 50 MG TAB PO PRN (04:55)
[2024-06-09] MEDS ORDERED: IBUPROFEN 400MG TAB PO PRN (04:55)
[2024-06-09] MEDS ORDERED: LORazepam 2 MG TAB PO PRN (04:55)
[2024-06-09] MEDS ORDERED: MAALOX 30 ML SUSP *UDC PO PRN (04:55)
[2024-06-09] MEDS ORDERED: ACETAMINOPHEN 325 MG TAB PO PRN (04:55)
[2024-06-09] MEDS ORDERED: diphenhydrAMINE 25MG CAP PO PRN (04:55)
[2024-06-09 07:45] LABS: OPIATES URINE NEGATIVE (NEGATIVE)
[2024-06-09 08:30] VITALS: BP 110/66
[2024-06-09] MEDS: FOLIC ACID 1MG TAB PO SCH (09:28)
[2024-06-09] MEDS: MULTIVITAMINS/MINERALS THERAP 1 TAB PO SCH (09:28)
[2024-06-09] MEDS: THIAMINE 100 MG TAB PO SCH (09:28)
[2024-06-09] MEDS ORDERED: ALBUTEROL 90 MCG/ACT 8GM HFA INHALER INH PRN (10:50)
[2024-06-09] MEDS ORDERED: OLANZapine ORAL DISINTEGRATING TAB 5MG PO PRN (11:05)
[2024-06-09] MEDS: OLANZapine 5 MG TAB PO SCH (11:29)
[2024-06-09] MEDS: GABAPENTIN 100 MG CAP PO SCH (11:29)
[2024-06-09 14:00] VITALS: BP 130/80
[2024-06-09] MEDS ORDERED: OMEP40CA5 PO (14:21)
[2024-06-09] MEDS ORDERED: HOME MED LIST COMPLETE! XX SCH (14:25)
[2024-06-09 15:40] VITALS: BP 131/84; TEMP 97.1; O2SAT 100
[2024-06-09] MEDS: NICOTINE POLACRILEX 2 MG GUM PO PRN (19:58)
[2024-06-09 20:26] VITALS: BP 105/62
[2024-06-09] MEDS: atenoloL 50 MG TAB PO SCH (20:26)
[2024-06-09 22:31] VITALS: BP 142/81
[2024-06-10 06:38] VITALS: BP 124/70; TEMP 97.8; O2SAT 98
[2024-06-10 06:49] VITALS: BP 124/78
[2024-06-10] MEDS: OMEPRAZOLE 20MG CAP PO SCH (08:04)
[2024-06-10] MEDS ORDERED: GABA-1171 PO (11:19)
[2024-06-10] MEDS ORDERED: OLAN1TAB16 PO (11:19)
== END 2024-06-10 13:20 | disposition home or self-care (01) | DRG 753 ==
LOC: M ED 18:09 → M ED INP 06-09 04:51 → M PSY 06-09 08:16
PROVIDERS: ADMIT Psychiatry & Neurology Neurology; ATTEND Psychiatry & Neurology Neurology
DX: F31.9 Bipolar disorder, unspecified (principal); F43.10 Post-traumatic stress disorder, unspecified; F41.1 Generalized anxiety disorder; F17.200 Nicotine dependence, unspecified, uncomplicated; K70.30 Alcoholic cirrhosis of liver without ascites; F10.920 Alcohol use, unspecified with intoxication, uncomplicated; I10 Essential (primary) hypertension; K21.9 Gastro-esophageal reflux disease without esophagitis; R45.851 Suicidal ideations; K29.70 Gastritis, unspecified, without bleeding; Z62.810 Personal history of physical and sexual abuse in childhood; Z79.899 Other long term (current) drug therapy; Z91.040 Latex allergy status; Z56.0 Unemployment, unspecified

== ENCOUNTER → 2024-06-15 | Outpatient (CLI) | payer MEDICAID ==
[~2024-06-15] MED LIST changes: +GABA-1171 PO; +OLAN1TAB16 PO; +OMEP40CA5 PO
== END ==
LOC: M OUTALCOH 08:07
PROVIDERS: ATTEND Psychiatry & Neurology Psychiatry
DX: F10.20 Alcohol dependence, uncomplicated (principal); F12.10 Cannabis abuse, uncomplicated; F17.200 Nicotine dependence, unspecified, uncomplicated

== ENCOUNTER 2024-10-10 14:00 | Outpatient (RCR) | payer MEDICAID | END 2024-10-16 | LOC: M OUTALCOH 14:00 | PROVIDERS: ATTEND Psychiatry & Neurology Psychiatry | DX: F10.20 Alcohol dependence, uncomplicated (principal); F12.10 Cannabis abuse, uncomplicated; F17.200 Nicotine dependence, unspecified, uncomplicated ==

== ENCOUNTER 2024-11-08 08:56 | Outpatient (RCR) | payer MEDICAID | END 2024-11-15 | LOC: M OUTALCOH 08:56 | PROVIDERS: ATTEND Psychiatry & Neurology Psychiatry | DX: F10.20 Alcohol dependence, uncomplicated (principal); F12.10 Cannabis abuse, uncomplicated; F17.200 Nicotine dependence, unspecified, uncomplicated ==

== ENCOUNTER 2024-11-23 09:54 | Outpatient (RCR) | payer MEDICAID | END 2024-12-16 | LOC: M OUTALCOH 09:54 | PROVIDERS: ATTEND Psychiatry & Neurology Psychiatry | DX: F10.20 Alcohol dependence, uncomplicated (principal); F12.10 Cannabis abuse, uncomplicated; F17.200 Nicotine dependence, unspecified, uncomplicated ==